=== PATIENT | female | born 1985 | race Caucasian/White ===

== ENCOUNTER 2018-06-05 12:50 | Outpatient (CLI) | payer BC ==
--- NOTE | 2018-06-05 17:33 | RAD ---
3 VIEWS SACRUM AND COCCYX: Date: 06/05/18 HISTORY: Fall. Pain. FINDINGS: Sacral ala preserved. No fracture. Visualized bony pelvis intact. IMPRESSION: No fracture. POS: HEATHER
== END 2018-06-05 12:51 | disposition home or self-care (01) ==
LOC: BICRAD 12:50
PROVIDERS: ATTEND Internal Medicine Rheumatology
DX: M53.3 Sacrococcygeal disorders, not elsewhere classified (principal)
CPT/HCPCS: 72220

== ENCOUNTER 2019-08-30 13:11 | Day surgery (SDC) | payer BC ==
[2019-08-30] MEDS ORDERED: hydrALAZINE 20 MG/ML VIAL SLOW IVP PRN (13:41)
[2019-08-30] MEDS ORDERED: Lactated Ringer's 1,000 ML IV SCH (13:45)
[2019-08-30 14:11] VITALS: BP 116/77; TEMP 98.6; BMI 29.0
== END 2019-08-30 16:27 | disposition home or self-care (01) ==
LOC: L&D/OP 13:11
PROVIDERS: ATTEND Family Medicine
DX: O26.50 Maternal hypotension syndrome, unspecified trimester (principal); Z3A.00 Weeks of gestation of pregnancy not specified; Z91.040 Latex allergy status; Z91.048 Other nonmedicinal substance allergy status
CPT/HCPCS: 96360; 96361; 99282

== ENCOUNTER 2019-10-09 05:30 | Inpatient (IN) | payer BC ==
[2019-10-09 06:07] VITALS: BMI 31.3
[2019-10-09] MEDS ORDERED: NS / Oxytocin 40 units/1000ml 1,000 ML IV PRN (07:05)
[2019-10-09] MEDS ORDERED: Misoprostol 200 MCG TAB PR PRN (07:05)
[2019-10-09] MEDS ORDERED: Ibuprofen 800 MG TAB PO PRN (07:05)
[2019-10-09] MEDS ORDERED: hydrALAZINE 20 MG/ML VIAL SLOW IVP PRN (07:05)
[2019-10-09] MEDS ORDERED: Butorphanol Tartrate 1 MG/ML VIAL SLOW IVP PRN (07:05)
[2019-10-09] MEDS ORDERED: Diphenoxylate HCl/Atropine Tablet PO PRN ×2 (07:05)
[2019-10-09] MEDS ORDERED: Carboprost 250 MCG/ML AMP IM PRN (07:05)
[2019-10-09] MEDS ORDERED: Ondansetron PF 4 MG/2 ML Vial IVP PRN ×2 (07:05→13:53)
[2019-10-09] MEDS ORDERED: Acetaminophen 500 MG TAB PO PRN (07:05)
[2019-10-09] MEDS ORDERED: HYDROcodone/Acetaminophen 5/325 mg Tablet PO PRN ×2 (07:05)
[2019-10-09] MEDS ORDERED: Promethazine HCl 25 MG/ML VIAL IM PRN ×2 (07:05→13:53)
[2019-10-09] MEDS ORDERED: Lidocaine 1% (PF) 30 ML VIAL SC PRN (07:05)
[2019-10-09] MEDS ORDERED: Methylergonovine 0.2 MG/ML VIAL IM PRN (07:05)
[2019-10-09] MEDS ORDERED: NS w/ Oxytocin 10 units 500 ML ONE (07:08)
[2019-10-09] MEDS ORDERED: NS w/ Oxytocin 10 units 500 ML IV SCH (07:15)
[2019-10-09 07:31] LABS: Hemoglobin 12.5 g/dL (12.0-16.0); Mean Corpuscular HGB CONC 34.1 g/dL (32.0-36.0); Mean Corpuscular Hemoglobin 33.2 pg (27.0-31.0); Mean Corpuscular Volume 97.4 fL (78.0-98.0); Mean Platelet Volume 8.8 fL (7.4-10.4); Platelet Count 207 thou/uL (130-400); RBC Distribution Width 11.7 % (11.5-14.5); Red Blood Cell (RBC) Count 3.75 mill/uL (4.20-5.40); White Blood Cell (WBC) Count 11.2 thou/uL (4.8-10.8)
[2019-10-09] MEDS: Lactated Ringer's 1,000 ML IV SCH ×3 (07:49→18:11)
[2019-10-09 08:07] LABS: Syphilis Antibody Nonreactive (Nonreactive); Syphilis Antibody Index 0.04 S/CO (<1.00 Non-Reactive)
[2019-10-09 08:13] LABS: HBSAg Index 0.14 S/CO (0-0.99); Hep B Surf Ag Non-Reactive S/CO (NonReactive)
[2019-10-09] MEDS ORDERED: Bupivacaine/Epinephrine 0.25% 30 ML VIAL ONE (11:27)
[2019-10-09] MEDS ORDERED: EPHEDRINE 25 MG/5 ML SYRINGE ONE (11:27)
[2019-10-09] MEDS ORDERED: Fentanyl 4 mcg/Bup 0.1% Cadd 100 ML ONE (11:53)
--- NOTE | 2019-10-09 12:19 | PDOC.LDHP ---
Labor and Delivery H&P Chief complaint: scheduled induction HPI: 34 yo at 39+ weeks with a favorable cervix requesting induction of labor due to concerns about COVID in the community and wanting to deliver prior to the peak of cases. has been uncomplicated. First complicated by PIH. Current gestational age (weeks): 39 Due date: 10/13/19 Dating criteria: last menstrual period, first trimester ultrasound Grav: 2 Para: 1 Current complications: none Abnormal US findings: No Current medications: pre-alondra vitamins Previous surgical history: none Allergies/Adverse Reactions: Allergies Allergy/AdvReac Type Severity Reaction Status Date / Time Latex, Natural Rubber Allergy Verified 09/13/19 09:34 Social history: none - Physical Exam Vital signs reviewed and normal: yes General: NAD, resting Heart: RRR Lungs: CTAB Abdomen: gravid Extremeties: no edema FHT: category 1 [place] contractions every: none at admit - Vaginal Exam cm dilated: 2 Effacement: 75% Station: -3 - OB Labs Blood type: A RH: positive Antibody Screen: negative HIV: negative RPR: negative HEPSAg: negative 1 hour GCT: negative GBS: negative Urine drug screen: not done Rubella: immune - Assessment L&D Assessment: elective induction at term - Plan Plan: admit to L&D, labor augmentation if indicated, informed consent obtained, anesthesia consult for pain management
--- NOTE | 2019-10-09 12:36 | PDOC.EVN ---
Event Note - Event Note Event Note: AROM with clear fluid. Tolerated well. No complications. FHT after AROM category I. SVE /-2. Increase pitocin to 14.
[2019-10-09] MEDS ORDERED: diphenhydrAMINE 50 MG/ML VIAL IVP PRN (13:53)
[2019-10-09] MEDS ORDERED: EPHEDRINE 25 MG/5 ML SYRINGE SLOW IVP PRN (13:53)
[2019-10-09] MEDS ORDERED: Lactated Ringer's 500 ML IV PRN (13:53)
[2019-10-09] MEDS ORDERED: Acetaminophen 325 MG TAB PO PRN (13:53)
[2019-10-09] MEDS ORDERED: Naloxone HCl 0.4 mg/ml Vial IVP PRN ×2 (13:53)
[2019-10-09] MEDS ORDERED: Fentanyl 4 mcg/Bupivacaine 0.1% Cassette 100 ML EPIDURAL SCH (14:00)
[2019-10-09] MEDS ORDERED: Communication Order-Pharmacy FS SCH (14:00)
--- NOTE | 2019-10-09 16:22 | PDOC.EVN ---
Event Note - Event Note Event Note: Came to asses the patient. SVE /-1. IUPC placed without difficulty. One early decel while I was here, resolved with position change. FHT otherwise category I. Accels present. Moderate variability.
[2019-10-09] MEDS ORDERED: Lidocaine 1% (PF) 30 ML VIAL ONE (19:21)
[2019-10-09] MEDS ORDERED: NS / Oxytocin 40 units/1000ml 1,000 ML ONE (19:21)
--- NOTE | 2019-10-09 21:48 | PDOC.OPDEL ---
OB Operative/Delivery Note Delivery Dr/Surgeon: Mane Pre-Delivery Diagnosis: elective induction Procedure/Post Delivery Dx: spontaneous vaginal delivery (Head OA, no nuchal cord, shoulders and posterior hand delivered compound together, body easily followed. Vigorous cry.) Weeks gestation: 39 Anesthesia: epidural - Findings A Sex: male - 1 min: 8 - 5 min: 9 - Additional Findings/Plan Placenta delivered: spontaneous (Cord gas and cord blood collected. 3 vessel cord.) Repaired Obstetrical Laceration: none Estimated blood loss: 150 Post delivery plan: routine recovery
[2019-10-09 22:19] LABS: Actual Bicarbonate (HCO3a) 20.4 mEq/L (22-28); Base Excess (BEa) -8.2 mEq/L (-2.0 to +3.0)
[2019-10-09 22:22] LABS: Actual Bicarbonate (HCO3v) 21 mEq/L (22-28); Base Excess -4.8 mEq/L (-2.0 to +3.0); pH (Cord, venous) 7.34 (7.32-7.43)
[2019-10-10] MEDS ORDERED: Milk Of Magnesia 30 ML UDCUP PO PRN (01:04)
[2019-10-10] MEDS ORDERED: Preparation H Ointment 28 GM TUBE PR PRN (01:04)
[2019-10-10] MEDS ORDERED: HYDROcodone/Acetaminophen 5/325 mg Tablet PO PRN (01:04)
[2019-10-10] MEDS ORDERED: Benzocaine-Menthol 82.5 ML CAN TOP PRN (01:04)
[2019-10-10] MEDS ORDERED: Bisacodyl 10 MG SUPP PR PRN (01:04)
[2019-10-10] MEDS ORDERED: hydrALAZINE 20 MG/ML VIAL SLOW IVP PRN (01:04)
[2019-10-10] MEDS ORDERED: Lanolin Ointment 7 GM TUBE TOP PRN (01:04)
[2019-10-10] MEDS ORDERED: diphenhydrAMINE 25 MG CAP PO PRN (01:04)
[2019-10-10] MEDS ORDERED: NS / Oxytocin 40 units/1000ml 1,000 ML IV SCH (01:04)
[2019-10-10] MEDS: Ibuprofen 800 MG TAB PO SCH ×3 (02:12→16:50)
[2019-10-10] MEDS: Ferrous Sulfate 325 MG TAB PO SCH ×2 (08:01→15:06)
[2019-10-10] MEDS ORDERED: Levothyroxine Sodium 88 MCG TAB PO SCH (08:45)
[2019-10-10] MEDS: Docusate Calcium (SURFAK) 240 MG CAP PO SCH ×2 (08:51→22:06)
--- NOTE | 2019-10-10 12:53 | PDOC.PP ---
Post Progress Note Post Day #: 1 Subjective: Doing well. Still due to void. Recent bladder scan with 900ml urine. Had this after last delivery as well. Otherwise doing well. PO intake tolerated: yes Flatus: yes Ambulation: yes Vital Signs (12 hours) Temp Pulse Resp BP Pulse Ox 10/10/19 11:27 97.7 F 80 20 138/78 10/10/19 08:01 98.9 F 83 20 135/82 97 10/10/19 03:50 98.8 F 83 18 136/76 98 10/10/19 01:55 98.6 F 81 18 122/70 Weight Weight 194 lb - Physical Examination General: NAD Cardiovascular: no m/r/g, RRR Respiratory: clear to auscultation bilaterally, non-labored breathing Abdominal: + bowel sounds, lochia, no distention, appropriately TTP Extremities: negative homans (B) Result Diagrams: 10/09/19 07:18 Additional Labs: Post Labs Blood Type A POSITIVE 10/09/19 07:18 Hep Bs Antigen Non-Reactive S/CO (NonReactive) 10/09/19 07:18 (1) Vaginal delivery Code(s): O80 - ENCOUNTER FOR FULL-TERM UNCOMPLICATED DELIVERY Status: Acute - Assessment/Plan Routine PP care DTV - advised warm shower and straight cath if still unable Home tomorrow AM
[2019-10-10] MEDS ORDERED: Hydrocortisone Acetate 25 MG Suppository PR PRN (15:00)
[2019-10-10] MEDS ORDERED: Witch Hazel-Glycerin 1 EACH JAR TOP PRN (15:02)
[2019-10-10] MEDS ORDERED: Preparation H Ointment 57 gram tube TOP PRN (17:15)
[2019-10-11] MEDS: Ibuprofen 800 MG TAB PO SCH ×2 (01:12→09:05)
[2019-10-11] MEDS ORDERED: Levothyroxine Sodium 88 MCG TAB PO SCH (06:00)
[2019-10-11 08:14] VITALS: BP 135/86; TEMP 98.8
[2019-10-11] MEDS: Ferrous Sulfate 325 MG TAB PO SCH (08:14)
[2019-10-11] MEDS: Docusate Calcium (SURFAK) 240 MG CAP PO SCH (09:05)
== END 2019-10-11 12:03 | disposition home or self-care (01) | DRG 807 ==
LOC: L&D 05:41 → 3SW 10-10 01:04
PROVIDERS: ADMIT Family Medicine; ATTEND Family Medicine
PROC: 10E0XZZ Delivery of Products of Conception, External Approach (ICD-10-PCS; principal; 2019-10-09)
PROC: 10907ZC Drainage of Amniotic Fluid, Therapeutic from Products of Conception, Via Natural or Artificial Opening (ICD-10-PCS; 2019-10-09)
DX: O76 Abnormality in fetal heart rate and rhythm complicating labor and delivery (principal); Z37.0 Single live birth; Z3A.39 39 weeks gestation of pregnancy
CPT/HCPCS: 36415; 51702; 82805; 85027; 86780; 86850; 86900; 86901; 87340; J2001; J2590